=== PATIENT | male | born 1990 | race Caucasian/White ===

== ENCOUNTER 2017-12-13 18:53 | Emergency (ER) | payer OTHER ==
[2017-12-13] MEDS ORDERED: Ketorolac INJ* 60 MG/2 ML VIAL IM ONE (21:04)
--- NOTE | 2017-12-13 21:05 | RAD ---
HISTORY: Right upper quadrant pain. COMPARISONS: None TECHNIQUE: Multiple transverse and longitudinal ultrasound images were obtained of the right upper quadrant. FINDINGS: LIVER: The liver is normal in dimensions and echogenicity. Normal hepatic and portal venous blood flow is duplicated with color flow imaging. There is no gross intrahepatic biliary duct dilatation. GALLBLADDER AND EXTRAHEPATIC BILIARY DUCT: The gallbladder appears contracted. The jamil measure 4 mm in thickness. No echogenic stones are seen in the gallbladder lumen. The common bile duct measures a maximum diameter of 3 mm. PANCREAS: The portions of the pancreas not obscured by bowel gas are normal in appearance. RIGHT KIDNEY: The right kidney is normal in size, morphology and echogenicity. AORTA AND IVC: The visualized portions are normal in appearance and not pathologically dilated. IMPRESSION: CONTRACTION OF THE GALLBLADDER SLIGHTLY LIMITS EVALUATION OF THIS OTHERWISE NORMAL RIGHT UPPER QUADRANT ULTRASOUND.
[2017-12-13 21:07] LABS: ABS Basophils 0 10^3/ul (0-0.2); ABS Eosinophils 0 10^3/ul (0-0.6); ABS Lymphocytes 0.8 10^3/ul (1.0-4.8); ABS Monocytes 0.6 10^3/ul (0-0.8); ABS Neutrophils 1.3 10^3/ul (1.5-7.7); ABS Nucleated RBC 0 10^3/ul; Eosinophil % 0.5 % (0-6); Hematocrit 46 % (42-52); Hemoglobin 16.1 g/dl (14.0-18.0); Lymphocyte % 29.6 % (25-47); Mean Corpuscular HGB Conc 35 g/dl (31-36); Mean Corpuscular Hemoglobin 30 pg (27-31); Mean Corpuscular Volume 86 fL (80-94); Mean Platelet Volume 7.8 um3 (7.4-10.4); Nucleated Red Blood Cells % 0.1; Platelet Count 153 10^3/ul (150-450); Red Blood Count 5.35 10^6/ul (4.0-5.4); Red Cell Distribution Width 12 % (10.5-15); White Blood Count 2.9 10^3/ul (3.5-10.8)
[2017-12-13 21:46] VITALS: BP 124/71
--- NOTE | 2017-12-13 21:58 | RAD ---
INDICATION: Upper abdominal pain, nausea and diarrhea COMPARISON: None TECHNIQUE: 2 views the abdomen were obtained. FINDINGS: There are no acute bony or soft tissue abnormalities. There are innumerable small foci of hyperdense material overlying the expected location of the stomach and throughout the length of the colon most consistent with antacid therapy in a patient with gastrointestinal symptoms. There is gas and stool throughout the length of the colon. There is no radiographic evidence of pathologic dilatation of the bowel. There are no obvious coarse calcifications overlying the expected location of the bilateral collecting systems or ureters. IMPRESSION: NO RADIOGRAPHICALLY APPARENT ACUTE ABNORMALITY. HYPERDENSE MATERIAL THROUGHOUT THE LENGTH OF THE GASTROINTESTINAL TRACT CAN BE SEEN IN THE SETTING OF INGESTION OF ANTACIDS (E.G. TUMS OR PEPTO-BISMOL).
--- NOTE | 2017-12-15 11:27 | ED ---
Tisha Pa Rebecca, scribed for Vic Duvall MD on 12/13/17 at 2041 . Abdominal Pain/Male - HPI Summary HPI Summary: Pt is a 27 y/o M who presents to ED c/o intermittent epigastric abdominal pain. Symptoms began night (2 days ago) which driving to [place], described as cramping, and last night it became severe. On triage, pain was noted to be moderate, ranked 6/10. Pain had resolved this morning, and did not return after having oatmeal, though upon having pizza, the pain returned. Additionally c/o right shoulder pain and steatorrhea last night that looked like oil which was floating on the surface of water. Steatorrhea resolved after a few hours. Denies CP, SOB, fever. No PSHx and no PMHx GERD. - History of Current Complaint Chief Complaint: EDAbdPain Stated Complaint: ABD PAIN Time Seen by Provider: 12/13/17 20:39 Hx Obtained From: Patient Onset/Duration: Lasting Days - 2 days, Still Present Timing: Intermittent Severity Currently: Moderate Pain Intensity: 6 Pain Scale Used: 0-10 Numeric Location: Epigastric Character: Cramping Aggravating Factor(s): Food - Pizza Associated Signs And Symptoms: Positive: Other - R shoulder pain, steatorrhea ( resolved). Negative: Fever, Chest Pain - Allergies/Home Medications Allergies/Adverse Reactions: Allergies Allergy/AdvReac Type Severity Reaction Status Date / Time No Known Allergies Allergy Verified 12/13/17 19:12 Home Medications: Home Medications Sertraline* [Zoloft*] 50 mg PO DAILY 12/13/17 [History Confirmed 12/13/17] PMH/Surg Hx/FS Hx/Imm Hx Previously Healthy: Yes Endocrine/Hematology History: Denies: Hx Diabetes GI History: Denies: Hx Gastroesophageal Reflux Disease Infectious Disease History: No Infectious Disease History: Denies: Traveled Outside the [place] in Last 30 Days - Social History Alcohol Use: Occasionally Substance Use Type: Reports: None Smoking Status (MU): Never Smoked Tobacco Review of Systems Negative: Fever Negative: Chest Pain Negative: Shortness Of Breath Positive: Abdominal Pain - Epigastric, Other - Steatorrhea Positive: Other - R shoulder pain All Other Systems Reviewed And Are Negative: Yes Physical Exam - Summary Physical Exam Summary: Appearance: Well appearing, no pain distress Skin: warm, dry, reflects adequate perfusion Head/face: normal Eyes: EOMI, ALYSA ENT: normal Neck: supple, non-tender Respiratory: CTA, breath sounds present Cardiovascular: RRR, pulses symmetrical Abdomen: non-tender, soft, no RUQ tenderness, negative Rogers's sign Bowel Sounds: present Musculoskeletal: normal, strength/ROM intact Neuro: normal, sensory motor intact, A&Ox3 Triage Information Reviewed: Yes Vital Signs On Initial Exam: Initial Vitals Temp Pulse Resp BP Pulse Ox 98.7 F 89 20 136/73 98 12/13/17 19:10 12/13/17 19:10 12/13/17 19:10 12/13/17 19:10 12/13/17 19:10 Vital Signs Reviewed: Yes Diagnostics - Vital Signs Vital Signs Temp Pulse Resp BP Pulse Ox 12/13/17 19:10 98.7 F 89 20 136/73 98 - Laboratory Lab Results: Lab Results 12/13/17 12/13/17 Range/Units 20:50 20:50 WBC 2.9 L (3.5-10.8) 10^3/ul RBC 5.35 (4.0-5.4) 10^6/ul Hgb 16.1 (14.0-18.0) g/dl Hct 46 (42-52) % MCV 86 (80-94) fL MCH 30 (27-31) pg MCHC 35 (31-36) g/dl RDW 12 (10.5-15) % Plt Count 153 (150-450) 10^3/ul MPV 7.8 (7.4-10.4) um3 Neut % (Auto) 47.0 (38-83) % Lymph % (Auto) 29.6 (25-47) % [place] % (Auto) 21.6 H (0-7) % Eos % (Auto) 0.5 (0-6) % Baso % (Auto) 1.3 (0-2) % Absolute Neuts (auto) 1.3 L (1.5-7.7) 10^3/ul Absolute Lymphs (auto) 0.8 L (1.0-4.8) 10^3/ul Absolute Monos (auto) 0.6 (0-0.8) 10^3/ul Absolute Eos (auto) 0 (0-0.6) 10^3/ul Absolute Basos (auto) 0 (0-0.2) 10^3/ul Absolute Nucleated RBC 0 10^3/ul Nucleated RBC % 0.1 Sodium 139 (139-145) mmol/L Potassium 3.6 (3.5-5.0) mmol/L Chloride 102 (101-111) mmol/L Carbon Dioxide 31 (22-32) mmol/L Anion Gap 6 (2-11) mmol/L BUN 14 (6-24) mg/dL Creatinine 0.93 (0.67-1.17) mg/dL Est GFR ( Amer) 127.3 (>60) Est GFR (Non-Af Amer) 99.0 (>60) BUN/Creatinine Ratio 15.1 (8-20) Glucose 101 H (70-100) mg/dL Calcium 9.3 (8.6-10.3) mg/dL Total Bilirubin 0.40 (0.2-1.0) mg/dL AST 20 (13-39) U/L ALT 21 (7-52) U/L Alkaline Phosphatase 53 (34-104) U/L Total Protein 6.9 (6.4-8.9) g/dL Albumin 4.1 (3.2-5.2) g/dL Globulin 2.8 (2-4) g/dL Albumin/Globulin Ratio 1.5 (1-3) Lipase 43 (11.0-82.0) U/L Result Diagrams: 12/13/17 20:50 12/13/17 20:50 Lab Statement: Any lab studies that have been ordered have been reviewed, and results considered in the medical decision making process. - Radiology Abdomen XR Xray Interpretation: No Acute Changes - NO RADIOGRAPHICALLY APPARENT ACUTE ABNORMALITY. HYPERDENSE MATERIAL THROUGHOUT THE LENGTH OF THE GASTROINTESTINAL TRACT CAN BE SEEN IN THE SETTING OF INGESTION OF ANTACIDS (E.G. TUMS OR PEPTO- BISMOL). ED physician reviewed this radiology report. Radiology Interpretation Completed By: Radiologist - Ultrasound No standard instances Ultrasound Interpretation: No Acute Changes - CONTRACTION OF THE GALLBLADDER SLIGHTLY LIMITS EVALUATION OF THIS OTHERWISE NORMAL RIGHT UPPER QUADRANT ULTRASOUND. ED physician reviewed this report. Ultrasound Interpretation Completed By: Radiologist Re-Evaluation - Re-Evaluation First Eval Re-Evaluation Time: 21:33 Comment: Pt is doing well, discussed results. 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 GB US neg and nl LFTs. Possible GB functional issue vs lactose intolerance etc. Trial lactose, if nl then recommend outpt HIDA. - Diagnoses Differential Diagnosis/HQI/PQRI: Gall Bladder Disease, Hepatitis, Pancreatitis, Other - lactose intol, IBS. Provider Diagnoses: Upper abdominal pain, Biliary colic, Diarrhea Discharge - Sign-Out/Discharge Documenting (check all that apply): Discharge - Discharge - Discharge Plan Condition: Good Disposition: HOME Patient Education Materials: Biliary Colic (ED) Referrals: No Primary Care Phys,NOPCP [Primary Care Provider] - Additional Instructions: No fat diet. HIDA scan is recommended. Return to an ER with vomiting, fever, uncontrolled pain, worse or other concerns. - Billing Disposition and Condition Condition: GOOD Disposition: HOME The documentation as recorded by the Tisha todd Rebecca accurately reflects the service I personally performed and the decisions made by , Vic Duvall MD.
== END 2017-12-13 21:44 | disposition home or self-care (01) ==
LOC: ED 18:53
DX: R10.13 Epigastric pain (principal); K80.50 Calculus of bile duct without cholangitis or cholecystitis without obstruction; R19.7 Diarrhea, unspecified; M25.511 Pain in right shoulder; K90.9 Intestinal malabsorption, unspecified
CPT/HCPCS: 36415; 74018; 76705; 80053; 83690; 85025; 99282